=== PATIENT | female | born 1945 | race African-American/Black ===

== ENCOUNTER 2018-03-01 05:58 | Inpatient (IN) | payer OTHER ==
[2018-02-26 17:45] VITALS: BMI 37.8
--- NOTE | 2018-02-28 17:41 | HP ---
Admitting History and Physical - Admission Chief Complaint: left hip pain x years History of Present Illness: 72 year old female presents today in follow up of her left hip. Longstanding history of left hip osteoarthritis. Patient complains of pain, limited ROM, difficulty ambulating and difficulty with ADLs. She has tried and failed conservative treatment measures including PO medications, activity modifications , injections and exercise programs. At this point, she would like to proceed with surgical intervention - left total hip arthroplasty (MAKOplasty). History Source: Patient - Past Medical History Cardiovascular: Yes: HTN Musculoskeletal: Yes: Osteoarthritis Endocrine: Yes: Diabetes Mellitus - Past Surgical History Additional Past Surgical History: See written history & physical. - Smoking History Smoking history: Never smoked - Alcohol/Substance Use Hx Alcohol Use: No Home Medications - Allergies Allergies/Adverse Reactions: Allergies Allergy/AdvReac Type Severity Reaction Status Date / Time Penicillins Allergy Itching Verified 02/26/18 17:26 - Home Medications Home Medications: Ambulatory Orders Diclofenac Sodium [Voltaren -] 75 mg PO BID 02/26/18 Glipizide 10 mg PO BID 02/26/18 Insulin Aspart [Novolog] 10 unit SQ BID 02/26/18 Insulin Degludec [Tresiba Flextouch U-100] 40 unit SQ HS 02/26/18 Losartan/Hydrochlorothiazide [Losartan-Hctz 100-25 mg Tab] 1 each PO DAILY 02/26 Metoprolol Tartrate [Lopressor -] 50 mg PO DAILY 02/26/18 Pregabalin [Lyrica] 200 mg PO BID 02/26/18 Review of Systems - Review of Systems Musculoskeletal: reports: Decreased ROM (left hip), Joint Pain (left hip) Physical Examination Constitutional: Yes: Well Nourished, No Distress Eyes: Yes: Conjunctiva Clear HENT: Yes: Atraumatic, Normocephalic Neck: Yes: Supple Cardiovascular: Yes: Regular Rate and Rhythm Respiratory: Yes: Regular Gastrointestinal: Yes: Soft ...Rectal Exam: Yes: Deferred Musculoskeletal: Yes: Joint Stiffness (left hip) Assessment/Plan 72 year old female presents today in follow up of her left hip. Longstanding history of left hip osteoarthritis. Patient complains of pain, limited ROM, difficulty ambulating and difficulty with ADLs. She has tried and failed conservative treatment measures including PO medications, activity modifications , injections and exercise programs. At this point, she would like to proceed with surgical intervention - left total hip arthroplasty (MAKOplasty). Pros, cons, risks, benefits and alternatives of a left total hip arthroplasty ( MAKOplasty) was discussed with the patient at length. Patient confirms her understanding and consents to proceed with a left total hip arthroplasty ( MAKOplasty).
[2018-03-01] MEDS ORDERED: TRANEXAMIC ACID 1000 MG/10 ML VIAL IVPUSH ONE (06:20)
[2018-03-01] MEDS ORDERED: CEFAZOLIN 2 GM in DEXTROSE 5%-WATER - 50 ML IVPB ONE (06:20)
[2018-03-01] MEDS ORDERED: ROPIVICAINE 0.2%/MORPH PF/KETOROLAC - 51ML DISP.SYRINGE IA ONE ×3 (06:20→10:43)
[2018-03-01] MEDS ORDERED: DESFLURANE GAS 240 ML BOTTLE IH ONE (06:51)
[2018-03-01] MEDS: GABAPENTIN 300 MG CAPSULE (FP) PO ONE ×2 (07:10→13:20)
[2018-03-01] MEDS: PANTOPRAZOLE 40 MG TABLET (FP) PO ONE ×2 (07:10→13:23)
[2018-03-01] MEDS: CELECOXIB 200 MG CAPSULE PO ONE ×2 (07:10→13:20)
[2018-03-01] MEDS: oxyCODONE HCL 10 MG SUSTAINED ACTING TABLET PO ONE ×2 (07:10→13:20)
[2018-03-01] MEDS ORDERED: MIDAZOLAM HCL 2 MG/2 ML SINGLE DOSE VIAL ONE (08:09)
[2018-03-01] MEDS ORDERED: BUPIVACAINE HCL/PF (5 MG/ML) 30 ML VIAL IJ ONE (08:10)
[2018-03-01] MEDS ORDERED: ePHEDrine SULFATE 50 MG/1 ML AMPULE ONE (08:49)
[2018-03-01] MEDS ORDERED: PROPOFOL 20 ML ONE (09:08)
[2018-03-01] MEDS ORDERED: TRANEXAMIC ACID 1000 MG/10 ML VIAL IVPB ONE ×2 (09:23→10:43)
[2018-03-01] MEDS ORDERED: VANCOMYCIN 1,000 MG VIAL (RESTRICTED TO ID ONLY) IVPB ONE ×2 (09:24→10:43)
[2018-03-01] MEDS ORDERED: ONDANSETRON 4 MG/2 ML VIAL ONE (11:23)
[2018-03-01] MEDS ORDERED: SODIUM CHLORIDE 0.9% P/F 10 ML VIAL IJ ONE (11:23)
[2018-03-01] MEDS ORDERED: ceFAZolin SODIUM 1 GM VIAL ONE (11:23)
[2018-03-01] MEDS ORDERED: PHENYLEPHRINE HCL 10 MG/1 ML SINGLE DOSE VIAL ONE (11:23)
[2018-03-01] MEDS ORDERED: TRANEXAMIC ACID 1000 MG/10 ML VIAL ONE (11:23)
[2018-03-01] MEDS ORDERED: traMADol HCL 50 MG TABLET ONE (11:42)
[2018-03-01] MEDS ORDERED: KETOROLAC TROMETHAMINE 30 MG/1 ML VIAL ONE (11:42)
--- NOTE | 2018-03-01 11:42 | OP ---
Operative Note - Note: Operative Date: 03/01/18 Pre-Operative Diagnosis: left hip OA Operation: Left CAROL Post-Operative Diagnosis: Same as Pre-op Surgeon: Shoaib Cantu Line Crew Supervisor: Noris Nicholas Anesthesia: Spinal Estimated Blood Loss (mls): 200
[2018-03-01] MEDS ORDERED: MAGNESIUM HYDROX 2400MG/30ML ORAL SUSPENSION 30 ML CUP PO PRN (11:43)
[2018-03-01] MEDS ORDERED: ONDANSETRON 4 MG/2 ML VIAL IVPUSH PRN ×2 (11:43→11:46)
[2018-03-01] MEDS ORDERED: ACETAMINOPHEN INJECTION 100 ML IVPB ONE (11:43)
[2018-03-01] MEDS ORDERED: MAG HYDROX/AL HYDROX/SIMETH 30 ML UNIT-DOSE CUP PO PRN (11:43)
[2018-03-01] MEDS ORDERED: LACTATED RINGERS SOLUTION 1,000 ML IV SCH (11:45)
[2018-03-01] MEDS: ACETAMINOPHEN 1000 MG/100 ML VIAL (NON FORMULARY) IVPB ONE ×2 (11:45→13:23)
[2018-03-01] MEDS ORDERED: PROMETHAZINE HCL 25 MG/1 ML VIAL IVPUSH PRN (11:46)
[2018-03-01] MEDS ORDERED: oxyCODONE HCL 5 MG TABLET PO PRN ×2 (11:46)
[2018-03-01] MEDS: KETOROLAC TROMETHAMINE 15 MG/ML VIAL IVPUSH SCH ×3 (12:01→23:13)
[2018-03-01] MEDS: traMADol HCL 50 MG TABLET PO SCH ×4 (12:40→23:14)
[2018-03-01] MEDS: glipiZIDE 5 MG TABLET (FP) PO SCH (16:13)
[2018-03-01] MEDS: INSULIN (NOVOLOG) ASPART 100 UNITS/ML 10ML VIAL SQ SCH ×3 (16:17→21:31)
[2018-03-01] MEDS ORDERED: INSULIN (NOVOLOG) ASPART 100 UNITS/ML 10ML VIAL ONE (16:34)
[2018-03-01] MEDS: ACETAMINOPHEN 325 MG TABLET (FP) PO SCH ×2 (17:32→23:14)
[2018-03-01] MEDS: CEFAZOLIN 2 GM/D5W 2 GM/50 ML ML IVPB SCH (17:34)
[2018-03-01] MEDS: PREGABALIN 50 MG CAPSULE PO SCH (21:31)
[2018-03-01] MEDS: SENNOSIDES/DOCUSATE COMBO (SENNA PLUS) TABLET (UD) PO SCH (21:32)
[2018-03-01] MEDS: ASCORBIC ACID 500 MG TABLET (FP) PO SCH (21:32)
[2018-03-01] MEDS: oxyCODONE HCL 10 MG SUSTAINED ACTING TABLET PO SCH (21:32)
[2018-03-01] MEDS ORDERED: INSULIN ASPART 10 UNIT SQ SCH (22:00)
[2018-03-01] MEDS ORDERED: CELECOXIB 200 MG CAPSULE PO SCH (22:00)
[2018-03-01] MEDS ORDERED: INSULIN DEGLUDEC SQ SCH (22:00)
[2018-03-02] MEDS: CEFAZOLIN 2 GM/D5W 2 GM/50 ML ML IVPB SCH ×2 (01:32→23:53)
[2018-03-02] MEDS: KETOROLAC TROMETHAMINE 15 MG/ML VIAL IVPUSH SCH (06:20)
[2018-03-02] MEDS: traMADol HCL 50 MG TABLET PO SCH ×4 (06:20→23:42)
[2018-03-02] MEDS: glipiZIDE 5 MG TABLET (FP) PO SCH ×2 (06:21→16:15)
[2018-03-02] MEDS: ACETAMINOPHEN 325 MG TABLET (FP) PO SCH ×4 (06:21→23:41)
[2018-03-02 07:39] LABS: HEMATOCRIT 30.1 % (32.4-45.2); HEMOGLOBIN 9.4 GM/dl (10.7-15.3); MCHC 31.4 g/dl (32.0-36.0); MEAN CELL VOLUME 95.7 fl (80-96); MEAN PLT VOLUME 8.7 fl (7.5-11.1); PLATELET COUNT 246 K/MM3 (134-434); RBC 3.15 M/mm3 (3.60-5.2); RDW 14.1 % (11.6-15.6); WHITE BLOOD COUNT 7.4 K/mm3 (4.0-10.8)
[2018-03-02 07:43] LABS: ANION GAP 8 MMOL/L (8-16); BLOOD UREA NITROGEN 24 mg/dl (7-18); CALCIUM 8.3 mg/dl (8.4-10.2); CHLORIDE 102 mmol/L (98-107); CO2 27 mmol/L (22-28); CREATININE 1.5 mg/dl (0.6-1.3); GLUCOSE,RANDOM 287 mg/dl (74-106); POTASSIUM 3.7 mmol/L (3.5-5.1); SODIUM 137 mmol/L (136-145)
[2018-03-02] MEDS: SENNOSIDES/DOCUSATE COMBO (SENNA PLUS) TABLET (UD) PO SCH ×2 (09:00→21:44)
[2018-03-02] MEDS: PANTOPRAZOLE 40 MG TABLET (FP) PO SCH (09:01)
[2018-03-02] MEDS: LOSARTAN 50MG/HCTZ 12.5MG 1 TAB (FP) PO SCH (09:01)
[2018-03-02] MEDS: oxyCODONE HCL 10 MG SUSTAINED ACTING TABLET PO SCH ×2 (09:02→21:44)
[2018-03-02] MEDS: MULTIVITAMINS (DAILY MVI) TABLET (FP) PO SCH (09:02)
[2018-03-02] MEDS: METOPROLOL TARTRATE 50 MG TABLET (FP) PO SCH (09:02)
[2018-03-02] MEDS: ASPIRIN 325 MG TABLET PO SCH (09:02)
[2018-03-02] MEDS: PREGABALIN 50 MG CAPSULE PO SCH ×2 (09:06→21:44)
--- NOTE | 2018-03-02 09:11 | PN ---
Progress Note (short form) - Note Progress Note: Post op day#1.S/P Left total hip [place] under spinal anesthesia with L1-L2 parvertebral block uneventful.Patient stable and does not c/o pain.No any anesthesia related problem.Patient DC from the anesthesia care.
[2018-03-02] MEDS: INSULIN (NOVOLOG) ASPART 100 UNITS/ML 10ML VIAL SQ SCH ×6 (09:12→21:46)
[2018-03-02] MEDS: ASCORBIC ACID 500 MG TABLET (FP) PO SCH ×2 (09:30→21:44)
[2018-03-02] MEDS ORDERED: PATIENT'S OWN MEDICATION (NON-FORMULARY) (Losartan/Hydrochlorothiazide [Losartan-Hctz 100- PO SCH (10:00)
[2018-03-02 20:42] LABS: ACTIVATED PTT 24.2 SECONDS (25.2-36.5)
[2018-03-02 20:47] LABS: INR 1.12 (0.82-1.09); PROTHROMBIN TIME (PATIENT) 12.5 SEC (10.2-13.0)
--- NOTE | 2018-03-02 23:33 | PN ---
Progress Note (short form) - Note Progress Note: Pt seen and examined. Events noted. Pt was confused when she woke up, got out of bed thinking she was home, and fell while getting herself up with the walker without assistance. No c/o pain at this time. No evidence of injury from fall. Ambulated with PT today. AVSS Selected Entries 03/02/18 22:51 Temperature 99.1 F Pulse Rate 86 Respiratory 18 Rate Blood Pressure 104/44 L O2 Sat by Pulse 98 Oximetry (%) Oxygen Delivery Nasal Cannula Method Laboratory Tests 03/02/18 03/02/18 03/02/18 06:18 07:05 07:05 WBC 7.4 Hgb 9.4 L Hct 30.1 L Plt Count 246 PT with INR INR PTT (Actin FS) Sodium 137 Potassium 3.7 Chloride 102 Carbon Dioxide 27 Anion Gap 8 BUN 24 H Creat Clearance w eGFR 34.04 POC Glucometer 295 Random Glucose 287 H Calcium 8.3 L 03/02/18 19:30 WBC Hgb Hct Plt Count PT with INR 12.5 INR 1.12 PTT (Actin FS) 24.2 L Sodium Potassium Chloride Carbon Dioxide Anion Gap BUN Creat Clearance w eGFR POC Glucometer Random Glucose Calcium Gen: NAD LLE: c/d/i, NVID A/P 72yo female POD#1 s/p L CAROL PT/OOB D/C home in AM after PT. I stressed the importance of strict glycemic control at home to prevent wound healing complications and infection. Pt states she saw her dry cleaning supervisor the day before admission and all doses were adjusted. Pt states that her BG is usually below 200 when she checks it at home. I instructed her to check it several times daily and call her dry cleaning supervisor right away if the levels are > 200.
[2018-03-03 01:48] VITALS: PULSE 94
[2018-03-03] MEDS: ACETAMINOPHEN 325 MG TABLET (FP) PO SCH (06:29)
[2018-03-03] MEDS: traMADol HCL 50 MG TABLET PO SCH (06:29)
[2018-03-03] MEDS: glipiZIDE 5 MG TABLET (FP) PO SCH (06:30)
[2018-03-03] MEDS: CEFAZOLIN 2 GM/D5W 2 GM/50 ML ML IVPB SCH (06:46)
[2018-03-03 06:52] VITALS: BP 132/46; TEMP 98.7
[2018-03-03] MEDS: INSULIN (NOVOLOG) ASPART 100 UNITS/ML 10ML VIAL SQ SCH ×2 (07:05)
[2018-03-03] MEDS: ASPIRIN 325 MG TABLET PO SCH (07:58)
[2018-03-03 09:14] LABS: HEMATOCRIT 28.3 % (32.4-45.2); HEMOGLOBIN 9.2 GM/dl (10.7-15.3); MCH 31.2 pg (25.7-33.7); MCHC 32.6 g/dl (32.0-36.0); MEAN CELL VOLUME 95.7 fl (80-96); PLATELET COUNT 233 K/MM3 (134-434); RBC 2.96 M/mm3 (3.60-5.2); RDW 14.1 % (11.6-15.6); WHITE BLOOD COUNT 8.6 K/mm3 (4.0-10.8)
[2018-03-03 09:24] LABS: ANION GAP 8 MMOL/L (8-16); BLOOD UREA NITROGEN 22 mg/dl (7-18); CALCIUM 8.3 mg/dl (8.4-10.2); CHLORIDE 102 mmol/L (98-107); CO2 26 mmol/L (22-28); CREATININE 1.5 mg/dl (0.6-1.3); GLUCOSE,RANDOM 248 mg/dl (74-106); POTASSIUM 3.6 mmol/L (3.5-5.1); SODIUM 136 mmol/L (136-145)
[2018-03-03] MEDS: LOSARTAN 50MG/HCTZ 12.5MG 1 TAB (FP) PO SCH (09:58)
[2018-03-03] MEDS: METOPROLOL TARTRATE 50 MG TABLET (FP) PO SCH (09:58)
[2018-03-03] MEDS: PANTOPRAZOLE 40 MG TABLET (FP) PO SCH (09:59)
[2018-03-03] MEDS: ASCORBIC ACID 500 MG TABLET (FP) PO SCH (09:59)
[2018-03-03] MEDS: PREGABALIN 50 MG CAPSULE PO SCH (09:59)
[2018-03-03] MEDS: MULTIVITAMINS (DAILY MVI) TABLET (FP) PO SCH (09:59)
[2018-03-03] MEDS: SENNOSIDES/DOCUSATE COMBO (SENNA PLUS) TABLET (UD) PO SCH (09:59)
[2018-03-03] MEDS: oxyCODONE HCL 10 MG SUSTAINED ACTING TABLET PO SCH (10:00)
--- NOTE | 2018-03-03 11:57 | DS ---
Physical Examination Vital Signs: Vital Signs Temperature 98.7 F 03/03/18 06:00 Pulse Rate 94 H 03/03/18 06:00 Respiratory Rate 18 03/03/18 08:33 Blood Pressure 132/46 L 03/03/18 06:00 O2 Sat by Pulse Oximetry (%) 97 03/03/18 08:33 Labs: CBC, BMP 03/03/18 07:20 03/03/18 07:20 Discharge Summary Reason For Visit: OSTEOARTHRITIS Current Active Problems Osteoarthritis of left hip (Acute) Procedures: Principal: left Wilberto Hospital Course: Admitted for elective surgery. Procedure performed without complications. Pt received postoperative antibiotic prophylaxis and DVT ppx. Ambulated with physical therapy. Stable for discharge home with outpatient followup. Condition: Stable - Instructions Diet, Activity, Other Instructions: Dr Cantu - Hip Replacement Instructions Keep the Aquacel dressing on until removed by Dr. Cantu in 10-14 days - it is antibacterial and waterproof and you can shower with it on. Call the office for a follow-up appointment with Dr. Cantu in 10-14 days. Take one Aspirin 325mg daily for 6 weeks to prevent blood clots in your legs. Take one Pantoprazole 40mg daily for 6 weeks to protect against heartburn and ulcers. Take a multivitamin, stool softener and extra Vitamin C supplement daily. DIABETES WARNING: HAVING ELEVATED BLOOD SUGAR >200 PLACES YOU AT HIGH RISK FOR INFECTION AND WOUND HEALING COMPLICATIONS! Take Cephalexin (antibiotic) 3x/day for 30 days to help prevent skin infection. MAKE SURE THAT YOU CHECK YOUR BLOOD GLUCOSE SEVERAL TIMES A DAY AT HOME. IF THE SUGARS ARE ELEVATED (>200) AND YOUR DIABETES IS NOT WELL CONTROLLED YOU MUST NOTIFY YOUR MOTOR VEHICLES SUPERVISOR RIGHT AWAY SO THAT ADJUSTMENTS TO YOUR INSULIN DOSE CAN BE MADE. Avoid eating foods containing sugar or starch (bread, pasta, cookies, crackers, cake, juices, soda, desserts) to keep your blood sugar low and prevent infection while healing from surgery. If you get an infection you may require readmission to the hospital, one or more additional surgeries with possible removal of the hip replacement, and IV antibiotics several times a day both in the hospital and at home for at least six weeks. This can potentially be life threatening. Watch your diet and keep your diabetes under control to minimize the chance of getting an infection. For pain: *Mild pain (1-3/10): Take 1 Tramadol tablet every 4 hours as needed. Moderate pain (4-6): Take 1 Tramadol tablet and 1 Percocet tablet every 4 hours as needed. Severe pain (7-03/21): Take 1 Tramadol tablet and 2 Percocet tablets every 4 hours as needed. Activity: You can put as much weight on the operative leg as you want. For the first 6 weeks, all you need to do is walk around the house, go up/down stairs, and sit down/get up. After 6 weeks when everything is healed (and bone has grown into the implant) you will be sent for more intensive outpatient physical therapy. Always use a walker or cane for balance and to prevent falls. Expect to see swelling / bruising from the operative site all the way down to your toes. Wear the Compression stocking on the operative side during the day to minimize how much swelling there is in your foot/ankle. Don't wear the stocking at night. You don't have to wear the stocking on the other side. Disposition: VNS/HOME HEALTH CARE - Home Medications Comprehensive Discharge Medication List: Ambulatory Orders Diclofenac Sodium [Voltaren -] 75 mg PO BID 02/26/18 Glipizide 10 mg PO BID 02/26/18 Insulin Aspart [Novolog Flexpen] 10 unit SQ BID 02/26/18 Insulin Degludec [Tresiba Flextouch U-100] 40 unit SQ HS 02/26/18 Losartan/Hydrochlorothiazide [Losartan-Hctz 100-25 mg Tab] 1 each PO DAILY 02/26 Metoprolol Tartrate [Lopressor -] 50 mg PO DAILY 02/26/18 Pregabalin [Lyrica] 200 mg PO BID 02/26/18 Aspirin [ASA -] 325 mg PO DAILY@0800 tablet 03/03/18 Cephalexin Monohydrate [Keflex -] 500 mg PO TID #90 capsule 03/03/18 Multivitamins [Multivit (RH Formulary)] 1 tab PO DAILY tab 03/03/18 Oxycodone HCl/Acetaminophen [Percocet 5-325 mg Tablet] 1 - 2 tab PO Q4H PRN #60 tablet MDD 10 03/03/18 Pantoprazole Sodium [Protonix -] 40 mg PO DAILY tablet.ec 03/03/18 Pantoprazole Sodium [Protonix -] 40 mg PO DAILY #40 tablet.ec 03/03/18 Sennosides/Docusate Sodium [Pericolace -] 2 tablet PO BID tablet 03/03/18 traMADol HCL [Ultram -] 50 mg PO Q4H PRN #42 tablet MDD 6 03/03/18
--- NOTE | 2018-03-03 15:40 | EKG ---
Test Reason : Blood Pressure : / mmHG Vent. Rate : 089 BPM Atrial Rate : 089 BPM P-R Int : 158 ms QRS Dur : 082 ms QT Int : 394 ms P-R-T Axes : 067 -20 047 degrees QTc Int : 479 ms NORMAL SINUS RHYTHM MINIMAL VOLTAGE CRITERIA FOR LVH, MAY BE NORMAL VARIANT CANNOT RULE OUT ANTERIOR INFARCT , AGE UNDETERMINED ABNORMAL ECG NO PREVIOUS ECGS AVAILABLE Confirmed by MD Peter, Elliot ([id number]) on 03/03/2018 3:40:03 PM Referred By: Shoaib Cantu Confirmed By:Elliot Green MD
--- NOTE | 2018-03-06 13:21 | SPEC ---
DATE OF OPERATION: 03/01/2018 PREOPERATIVE DIAGNOSIS: Left hip osteoarthritis. POSTOPERATIVE DIAGNOSIS: Left hip osteoarthritis. PROCEDURE: Left total hip replacement with MAKOplasty robotic navigation. ATTENDING: Marysol Lees MD INJECTION MOLDING MACHINE OPERATOR: IMTIAZ Wallis ANESTHESIA: Spinal plus sedation. ESTIMATED BLOOD LOSS: 200 mL COMPLICATIONS: None. DISPOSITION: The patient was transferred to the PACU in stable condition. IMPLANTS USED: [place] Accolade II size 4, 127-degree femoral component; Abdi Tritanium 52-mm acetabular component with 30-mm acetabular screw; MDM bipolar head ball with inner ceramic +4 mm offset head; 1 [place] cable. INDICATIONS: This is a 72-year-old female who presented to the office complaining of severe left hip pain. She was seen and examined by Dr. Lees and diagnosed with severe left hip osteoarthritis. She was initially treated nonoperatively with injections, medications, and physical therapy but failed conservative management and continued to have severe pain and ambulatory dysfunction. She was, therefore, indicated for a left total hip replacement. The risks, benefits, and alternatives of the procedure were explained to the patient in great detail, and she elected to proceed with the surgery. On the day of surgery, the patient was taken to the operating room and placed on the OR table. Spinal anesthesia was administered by the anesthesiologist. The patient was then positioned in the lateral decubitus position on the table and all bony prominences were padded. An axillary roll was placed. The operative hip was then prepped and draped in the usual sterile fashion and intravenous antibiotics were given for infection prophylaxis. A surgical time-out was then performed with the team, and the patients identity, procedure, side, availability of implants, and the administration of antibiotics were confirmed. An approximately 15-cm longitudinal incision was made through the skin centered on the greater trochanter of the hip. This dissection was carried down through the subcutaneous tissues to the deep fascia. This fascia was then incised and a Cobra was placed around the inferior femoral neck. Electrocautery was used to reflect the anterior 40% of the gluteus medius and minimus starting at the musculotendinous junction and leaving a cuff for closure. This was reflected to reveal the capsule of the hip joint. An anterior capsulectomy was performed and the femoral head and neck were visualized. Grade 4 changes were noted diffusely throughout the joint. At this point, three small stab incisions were made superior to the main incision along the iliac crest. Three self-drilling Steinmann pins were then placed and the PureSense pelvic array was attached. Reference points on the limb were then entered into the robotic device and the limb length deficiency, offset, and femoral neck resection level were then calculated by the software. The hip was then dislocated with traction and external rotation. An oscillating saw was used to make the femoral neck cut at the level previously templated, and the femoral head was removed. Attention was then turned to the acetabulum. Retractors were then placed around the acetabulum and the labrum was removed. An acetabular checkpoint pin and the PureSense software were used to register the contours of the acetabulum. The acetabulum was then reamed in a single stage to the preoperatively templated size using the Wang robotic arm. The appropriately sized cup was then impacted and had solid fixation as well as the preset inclination and version of 40 and 20 degrees, respectively. A polyethylene liner was then placed in the cup. Attention was then turned back to the femur, which was externally rotated for improved visualization. A femoral neck elevator was used to present the femoral neck cut, a box osteotome was used to enter the femoral canal, and a canal finder was used to go down the femoral shaft. The Wang broaches were used sequentially until the optimal scratch fit was achieved. This correlated with the preoperatively templated size. From here, several different offset head and neck configurations were tested until excellent stability and length were obtained. These measurements were quantified using the PureSense software. All trial components were then removed, the femur was copiously irrigated, and the final components were placed. Leg length and stability were checked again and found to be excellent. Irrigation was performed again. Wound closure was started by repairing the abductor muscles with a no. 2 FiberWire stitch in a Krackow configuration passed through bone tunnels in the greater trochanter and tied over a bony bridge. This repair was then reinforced with a 0 V-Loc 180 barbed suture. Next, no. 1 Polysorb and 0 V-Loc 180 were used to close the fascia. The deep subcutaneous tissue was closed with no. 1 Polysorb sutures, and 2-0 Polysorb was used for the superficial subcutaneous tissue. The skin was closed using both 3-0 V-Loc 90 suture in a running subcuticular fashion and SwiftSet skin adhesive. The Wang array and pins were removed from the iliac crest and the stab incision sites were irrigated and closed with 4-0 Polysorb sutures and SwiftSet skin adhesive. Once this was completed, a sterile dressing was applied. The patient was then awakened and taken to the PACU in stable condition. ADDENDUM: After final implants were placed, a 3-minute dilute Betadine lavage was performed. Following this, the wound was thoroughly irrigated with normal saline via pulsatile lavage, and wound closure was begun. MARYSOL LEES M.D. [id number]
--- NOTE | 2018-03-07 14:47 | PATH ---
Surgical Pathology Report Patient Name: IZAIAH KAPLAN Med. Rec. #: [id number] /Age/Gender: 1945 (Age: 72) / M Account: [id number] Location: [facility] MED-[facility]URG Taken: 03/01/2018 Received: 03/01/2018 Reported: 03/07/2018 Physicians: Shoaib Cantu M.D. Specimen(s) Received LEFT FEMORAL HEAD Clinical History Osteoarthritis Final Diagnosis FEMORAL HEAD, LEFT, TOTAL HIP REPLACEMENT: DEGENERATIVE JOINT DISEASE. Electronically Signed Shonna Jay M.D. Gross Description Received in formalin, labeled "left femoral head," is a 4.1 x 4.1 x 3.8 cm. femoral head with a 0.9 cm in length portion of femoral neck attached. The margin of resection is smooth. There is a 2.8 cm in greatest dimension area of eburnation. The remaining articular surface is desai-yellow and diffusely nodular and granular. The underlying trabecular bone is yellow and hard. A artist representative section is submitted in one cassette, following decalcification. 03/02/2018 [facility]03/02/2018
== END 2018-03-03 14:10 | disposition home health service (06) | DRG 470 ==
LOC: EDSEX → FM/S 05:58
PROVIDERS: ADMIT Student in an Organized Health Care Education/Training Program; ATTEND Student in an Organized Health Care Education/Training Program
PROC: 8E0Y0CZ Robotic Assisted Procedure of Lower Extremity, Open Approach (ICD-10-PCS; 2018-03-01)
PROC: 0SRB0JZ Replacement of Left Hip Joint with Synthetic Substitute, Open Approach (ICD-10-PCS; principal; 2018-03-01 09:16)
DX: M16.12 Unilateral primary osteoarthritis, left hip (principal); E11.9 Type 2 diabetes mellitus without complications; I10 Essential (primary) hypertension
CPT/HCPCS: 36415; 70460-TC; 73502-TC-LT-FY; 80048; 82962; 85027; 85610; 85730; 88304-TC; 88311-TC; 93005; 94760; 97116-GP; 97162-GP; J0131